=== PATIENT | male | born 1985 | race Caucasian/White ===

== ENCOUNTER 2019-04-27 14:20 | Emergency (ER) | payer BC, SELFPAY ==
[2019-04-27 14:40] VITALS: BP 121/79; PULSE 62; RESP 18; TEMP 37.4; O2SAT 98
--- NOTE | 2019-04-27 15:27 | ED.EAR ---
HPI - Ear Problem General Chief complaint: Ear Stated complaint: POS ear infection Time Seen by Provider: 04/27/19 15:27 Source: patient Mode of arrival: ambulatory Limitations: no limitations History of Present Illness HPI Narrative: Conrado Stern is a 33 yo male with a PMH of tension and depression, who comes to express care for left ear pain that started less than 24 hours ago. Related Data Home Medications Medication Instructions Recorded Confirmed citalopram 20 mg PO DAILY 04/27/19 04/27/19 metoprolol succinate 25 mg PO DAILY 04/27/19 04/27/19 Allergies Allergy/AdvReac Type Severity Reaction Status Date / Time No Known Allergies Allergy Verified 04/27/19 14:55 Review of Systems Review of Systems: Narrative: CONSTITUTIONAL: Denies fever, chills, sweats. EYES: Denies visual changes, redness, discharge. ENT: Denies rhinorrhea, congestion, sore throat, L otalgia. CARDIOVASCULAR: Denies chest pain, palpitations, edema. RESPIRATORY: Denies dyspnea, wheezing, cough GASTROINTESTINAL: Denies abdominal pain, nausea, vomiting, diarrhea. GENITOURINARY: Denies dysuria, hematuria, abnormal discharge SKIN: Denies rash or itching. NEUROLOGIC: Denies numbness, or focal weakness. PSYCHIATRIC: Denies anxiety or depression. [facility] Family History Family History (Updated 04/27/19 @ 15:30 by Ruby Augustine CNP) Other No active medical problems Social History Social History (Updated 04/27/19 @ 15:30 by Ruby Augustine CNP) Smoking status: Never smoker Living arrangements: with family Comments At time of signature, I agree with nursing past medical, surgical, social and family history. There is no relevant family history pertinent to the presenting complaint. Exam Narrative: Exam Narrative: GENERAL: This is a well-nourished, well-developed patient, in no apparent distress. HEAD: normocephalic, atraumatic. EYES: Sclera clear/white. Vision is grossly intact. , is draining, Hearing grossly intact. NOSE: External nose normal with no obvious nasal discharge, nares without redness, no rhinorrhea. THROAT: Mucous membranes moist, NECK: Neck supple, non-tender CARDIOVASCULAR: Regular rate and rhythm without murmurs, gallops, or rubs. RESPIRATORY: Clear to auscultation. Breath sounds equal bilaterally. No wheezes, rales, or rhonchi. GASTROINTESTINAL: Abdomen soft, non-tender, SKIN: warm, intact with no suspicious lesions or rash, good texture and turgor. NEURO: awake, alert, and oriented to person, place and time. There were no obvious focal neurologic abnormalities. Steady gait EXTREMITIES: Normal range of motion. No edema. BACK: Nontender without deformity or crepitance. Course Course Emergency Course: Started on antibiotics and eardrops plus narcotics Vital Signs Vital signs: Vital Signs Temperature 99.4 F 04/27/19 14:40 Pulse Rate 62 04/27/19 14:40 Respiratory Rate 18 04/27/19 14:40 Blood Pressure 121/79 04/27/19 14:40 Pulse Oximetry 98 04/27/19 14:40 Temperature 99.4 F 04/27/19 14:40 Pulse Rate 62 04/27/19 14:40 Respiratory Rate 18 04/27/19 14:40 Blood Pressure 121/79 04/27/19 14:40 Pulse Oximetry 98 04/27/19 14:40 Medical Decision Making Differential Diagnosis Differential Diagnosis: ear ache, otitis, perferated TM Vital Signs Vital Signs: Vital Signs Temperature 99.4 F 04/27/19 14:40 Pulse Rate 62 04/27/19 14:40 Respiratory Rate 18 04/27/19 14:40 Blood Pressure 121/79 04/27/19 14:40 Pulse Oximetry 98 04/27/19 14:40 Temperature 99.4 F 04/27/19 14:40 Pulse Rate 62 04/27/19 14:40 Respiratory Rate 18 04/27/19 14:40 Blood Pressure 121/79 04/27/19 14:40 Pulse Oximetry 98 04/27/19 14:40 Discharge Plan Discharge Clinical Impression: Tympanic membrane perforation, marginal Qualifiers: Laterality: left Qualified Code(s): H72.2X2 - Other marginal perforations of tympanic membrane, left ear Patient Disposition:
== END 2019-04-27 15:52 | disposition home or self-care (01) ==
PROVIDERS: Emergency Provider Nurse Practitioner
DX: H72.2X2 Other marginal perforations of tympanic membrane, left ear (principal); F32.9 Major depressive disorder, single episode, unspecified; I10 Essential (primary) hypertension
CPT/HCPCS: 99203; G0463

== ENCOUNTER 2021-03-17 13:57 | Emergency (ER) | payer BC, SELFPAY ==
[2021-03-17 14:14] VITALS: BP 122/78; PULSE 63; RESP 18; TEMP 36.2; O2SAT 99
--- NOTE | 2021-03-17 14:19 | ED.URI ---
HPI - URI/Sore Throat General Chief Complaint: Upper Respiratory Infection Stated Complaint: joint aches,fatigue,cough Time Seen by Provider: 03/17/21 14:19 History of Present Illness HPI Narrative: Conrado Stern is a 35 yo male with a PMH HTN, anxiety, who comes to [facility] with concerns about whether he is COVID or not he has had 3 days of symptoms of body aches and mild cough but vomited this morning and came here for COVID test COVID PCR test was done; explained to patient the rapid test is not accurate at this point and would not be reflective of his true status. 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 Related Data Home Medications Medication Instructions Recorded Confirmed citalopram 40 mg PO DAILY 04/27/19 04/27/19 metoprolol succinate 25 mg PO DAILY 04/27/19 03/17/21 Allergies Allergy/AdvReac Type Severity Reaction Status Date / Time No Known Allergies Allergy Verified 03/17/21 14:21 Review of Systems Review of Systems: CONSTITUTIONAL: Denies fever, chills, sweats. Fatigue EYES: Denies visual changes, redness, discharge. ENT: Denies rhinorrhea, congestion, sore throat, otalgia. CARDIOVASCULAR: Denies chest pain, palpitations, edema. RESPIRATORY: Denies dyspnea, wheezing, has cough GASTROINTESTINAL: Denies abdominal pain, nausea, vomiting, diarrhea. Vomited x1 GENITOURINARY: Denies dysuria, hematuria, abnormal discharge SKIN: Denies rash or itching. NEUROLOGIC: Denies numbness, or focal weakness. PSYCHIATRIC: Denies anxiety or depression. PMF[facility] Past Medical History Medical History Anxiety HTN (hypertension) Family History Family History Other No active medical problems Social History Social History (Updated 03/17/21 @ 14:35 by Ruby Augustine CNP) Smoking status: Never smoker Alcohol intake: current Comments At time of signature, I agree with nursing past medical, surgical, social and family history. There is no relevant family history pertinent to the presenting complaint. Exam Narrative: GENERAL: This is a well-nourished, well-developed patient, in mild distress. HEAD: normocephalic, atraumatic. EYES: Sclera clear/white. Vision is grossly intact. EARS: External ears normal, Hearing grossly intact. NOSE: External nose normal without nasal discharge, nares without redness, no rhinorrhea. THROAT: Mucous membranes moist, NECK: Neck supple, non-tender CARDIOVASCULAR: Regular rate and rhythm without murmurs, gallops, or rubs. RESPIRATORY: Diminished to auscultation. Breath sounds equal bilaterally. No wheezes, rales, or rhonchi. GASTROINTESTINAL: Not performed SKIN: warm, intact with no suspicious lesions or rash, good texture and turgor. NEURO: awake, alert, and oriented to person, place and time. There were no obvious focal neurologic abnormalities. Steady gait EXTREMITIES: Normal range of motion. BACK: Nontender without deformity Course Course Emergency Course: Patient here with complaints of tiredness cough body aches he vomited this morning Wants a COVID test-DR ordered patient wanted a rapid test explained why that would not be accurate with his current length of symptoms Level of Care: Express Care Visit Vital Signs Vital signs: Vital Signs Temperature 97.1 F L 03/17/21 14:14 Pulse Rate 63 03/17/21 14:14 Respiratory Rate 18 03/17/21 14:14 Blood Pressure 122/78 03/17/21 14:14 Pulse Oximetry 99 03/17/21 14:14 Temperature 97.1 F L 03/17/21 14:14 Pulse Rate 63 03/17/21 14:14 Respiratory Rate 18 03/17/21 14:14 Blood Pressure 122/78 03/17/21 14:14 Pulse Oximetry 99 03/17/21 14:14 MDM - URI/Sore Throat Differential Diagnosis Differential diagnosis: Likely upper respiratory infection, otitis media, viral infect
[2021-03-19 18:18] LABS: SARS-CoV-2 RNA PCR Negative
== END 2021-03-17 14:43 | disposition home or self-care (01) ==
PROVIDERS: Emergency Provider Nurse Practitioner
DX: J06.9 Acute upper respiratory infection, unspecified (principal); Z20.822 Contact with and (suspected) exposure to COVID-19; F41.9 Anxiety disorder, unspecified; I10 Essential (primary) hypertension
CPT/HCPCS: 99213; C9803; G0463; U0003; U0005

== ENCOUNTER 2023-11-17 17:45 | Emergency (ER) | payer SELFPAY ==
--- NOTE | ~2023-11-17 | CT_ITS ---
CT abdomen pelvis w con Ordering provider: Kaylynn Bernard MD History: 38 years Male with . R sided (particularly RUQ) pain; Fontenot + . Comparison: None. Technique: CT abdomen and pelvis with IV and without oral contrast. Automated exposure control and it erative reconstruction technique were employed. The dose-length product was 757.99 mGy-cm. 100 mL Omn ipaque 350 was given IV. Findings: VISUALIZED LOWER CHEST: Dependent atelectatic changes. UPPER ABDOMINAL ORGANS: Liver: Mild fat infiltration Gallbladder: Normal. Spleen: Normal. Stomach/duodenum: Normal. Pancreas: Normal. Adrenals: Normal. Kidneys: Right hydronephrotic changes with hydroureter with tiny 3 mm stone in the distal right urete r. PELVIC ORGANS: The bladder is normal. BOWEL AND MESENTERY: Colon: No evidence of no which patient IN THE PROXIMAL CTA of diverticulitis. Normal appendix. Small Bowel: Normal. No obstruction. Peritoneum/mesentery: No free air or free fluid. No mesenteric lymphadenopathy. RETROPERITONEUM: Normal aorta. No retroperitoneal lymphadenopathy. MUSCULOSKELETAL: Superficial soft tissues: The superficial soft tissues are normal. Bones: Normal spine. IMPRESSION: 1. Stone in the right lower ureter at the ureterovesical junction with right hydronephrotic changes. 2. No other significant abnormality seen. Reviewed, dictated and finalized at location A. IMPRESSION: 1. Stone in the right lower ureter at the ureterovesical junction with right h ydronephrotic changes. 2. No other significant abnormality seen.
[2023-11-17 17:45] VITALS: BP 129/100; PULSE 62; RESP 14; TEMP 37; O2SAT 98
[2023-11-17 18:18] LABS: Basophils Absolute Auto 0.1 K/mm3 (0.0-0.1); Basophils Percent Auto 0.9 % (0.2-1.2); Eosinophils Absolute Auto 0.3 K/mm3 (0-0.3); Eosinophils Percent Auto 1.8 % (0-4.4); Hematocrit 47.1 % (42.0-52.0); Hemoglobin 16.3 g/dL (14.0-18.0); Immature Granulocyte Absolute 0.09 K/mm3 (0.00-0.031); Immature Granulocyte Percent A 0.6 % (0-0.5); Lymphocytes Absolute Auto 2.73 K/mm3 (0.9-3.2); Lymphocytes Percent Auto 19.4 % (18.3-44.2); Mean Corpuscular HGB Conc 34.6 g/dl (32-36); Mean Corpuscular Hemoglobin 32.1 pg (26-34); Mean Corpuscular Volume 92.9 fl (80-100); Mean Platelet Volume 10.1 fl (7.4-10.4); Monocytes Absolute Auto 0.9 K/mm3 (0.1-0.6); Monocytes Percent Auto 6.3 % (2.6-8.5); Platelet Count Result 220 k/mm3 (150-375); Red Blood Count 5.07 M/mm3 (4.6-6.20); Red Cell Distribution Width 12.5 % (11.5-14.5)
[2023-11-17 18:28] LABS: Alanine Aminotransferase 26 U/L (6-50); Albumin Level 4.4 g/dL (3.5-5.1); Alkaline Phosphatase 85 U/L (38-126); Anion Gap 10 mmol/L (4-12); Aspartate Amino Transferase 24 U/L (17-59); Bilirubin,Total 0.4 mg/dL (0.2-1.3); Blood Urea Nitrogen 15 mg/dL (9-20); Calcium 8.8 mg/dL (8.4-10.2); Carbon Dioxide 26 mmol/L (22-30); Chloride 104 mmol/L (98-107); Estimated CRCL calculation 106 ml/min; Estimated Glomerular Filt Rate > 60; Glucose 101 mg/dL (65-110); Lipase 76 U/L (23-300); Potassium 3.6 mmol/L (3.4-5.0); Sodium 140 mmol/L (137-145)
--- NOTE | 2023-11-17 18:59 | ED.ABDPAIN ---
HPI - Abdominal Pain General Chief Complaint: Abdominal Pain Stated Complaint: abd pain Time Seen by Provider: 11/17/23 18:11 Source: patient and family Mode of arrival: ambulatory Limitations: no limitations History of Present Illness HPI narrative: Patient presents with right-sided abdominal pain occurring suddenly approximately 1 hour prior to arrival. He denies any radiation although he states sometimes when he is lying on his back he feels like he is having back pain. Initially the pain was 7/10 in severity currently 5/10. His last oral intake was at approximately 12 noon when he had fast food, chicken from [employer]. His last bowel movement was this morning and he denies any diarrhea, constipation, or bloody stools. He denies any nausea or vomiting. He was borderline febrile at home with a temperature of 100? F. he states this has never happened before. Does not follow with negative retoucher. Denies any penile discharge or scrotal pain. Had not yet taken anything for pain but had trialed Pepto-Bismol and Gas-X. He still has his gallbladder and his appendix. Patient states the pain is constant but intermittently spikes with increased intensity. Related Data Home Medications Medication Instructions Recorded Confirmed citalopram 20 mg tablet 40 mg PO DAILY 04/27/19 04/27/19 metoprolol succinate 25 mg 25 mg PO DAILY 04/27/19 03/17/21 tablet,extended release 24 hr Allergies Allergy/AdvReac Type Severity Reaction Status Date / Time No Known Allergies Allergy Verified 11/17/23 18:08 [facility] Past Medical History Medical History Anxiety HTN (hypertension) Family History Family History Other No active medical problems Social History Social History (Updated 03/17/21 @ 14:35 by Ruby Augustine, [facility]) Smoking status: Never smoker Alcohol intake: current Living arrangements: with family Exam Narrative: GENERAL: Well-appearing, well-nourished, and in no acute distress. HEAD: Normocephalic, atraumatic. EYES: Non injected, non icteric ENT: Nares clear, no rhinorrhea or epistaxis. NECK: Supple. CHEST: Speaking in full sentences. No respiratory distress. HEART: Regular rate and rhythm. . ABDOMEN: Soft, nondistended. Nontender to palpation throughout. Abdomen is without rigidity or guarding. Not peritoneal. Fontenot sign positive. EXTREMITIES: Normal range of motion. No lower extremity edema. SKIN: Warm, dry, no rash. No ecchymosis overlying abdomen. NEURO: No focal deficits. Alert and oriented x3. PSYCH: Normal mood and affect. Course Vital Signs Vital signs: Vital Signs Temperature 98.6 F 11/17/23 17:45 Pulse Rate 62 11/17/23 17:45 Respiratory Rate 14 11/17/23 17:45 Blood Pressure 129/100 H 11/17/23 17:45 Pulse Oximetry 98 11/17/23 17:45 Temperature 98.6 F 11/17/23 17:45 Pulse Rate 65 11/17/23 19:43 Respiratory Rate 16 11/17/23 19:43 Blood Pressure 138/89 11/17/23 19:43 Pulse Oximetry 98 11/17/23 19:43 MDM - Abdominal Pain MDM Narrative Medical decision making narrative: patient presents right-sided abdominal pain starting acutely. In the emergency department he is afebrile with vital signs notable for an elevated diastolic blood pressure creating a narrow pulse pressure. Will give patient analgesic pain medication proceed with CT imaging. This does demonstrate a stone at the UVJ. Patient given tamsulosin ketorolac when reassessed he states his pain is well controlled. Discussed expulsion therapy including medications to be given, other purposes the natural progression to be expected, as well as strict emergency department return precautions follow-up plans. Patient and his or person verifies understanding and are in agreement. Stable for discharge. Urology contact for follow-up provided. Patient does not hav
[2023-11-17] MEDS: MORPHINE SULFATE (*CRX) 4 MG/ML INJ IV PUSH (19:33)
[2023-11-17 19:43] VITALS: BP 138/89; PULSE 65; RESP 16; O2SAT 98
[2023-11-17 19:54] LABS: Add Urine Microscopic? YES; Appearance Urine Clear (Clear); Bacteria Urine None Seen /hpf; Bilirubin Urine Negative (Negative); Blood Urine 3+ (Negative); Color Urine Yellow (Yellow); Glucose Urine UA Negative (Negative); Ketones Urine Negative (Negative); Leukocyte Esterase Ur 1+ LEU/UL (Negative); Nitrate Urine Negative (Negative); Non Pathogenic Casts 0-2; Protein Urine Negative (Negative); RBC Urine 51-100 /hpf (0-2); Specific Grav Ur 1.013 (1.001-1.035); Squamous Epithelial Cell Urine None Seen /hpf (Few); Urobilinogen Urine 0.2 mg/dL (<2.0)
[2023-11-17] MEDS: KETOROLAC 15 MG/ML VIAL (*BKC) IV PUSH (21:46)
[2023-11-17] MEDS: TAMSULOSIN HCL 0.4 MG CAPSULE PO (21:46)
== END 2023-11-17 22:33 | disposition home or self-care (01) ==
PROVIDERS: Registered Nurse; Emergency Provider Student in an Organized Health Care Education/Training Program
DX: N13.2 Hydronephrosis with renal and ureteral calculous obstruction (principal); D72.829 Elevated white blood cell count, unspecified; R31.29 Other microscopic hematuria; I10 Essential (primary) hypertension
CPT/HCPCS: 36415; 74177; 80053; 81001; 83690; 85025; 87086; 96374; 96375; 99284; A9270; J1885; J2270; Q9967